=== PATIENT | male | born 1950 | race Caucasian/White ===

== ENCOUNTER 2020-07-18 08:22 | Outpatient (CLI) | payer MEDICARE, SELFPAY ==
[2020-07-18 09:47] LABS: Prothrombin Time 13.4 Seconds (11.1-14.7)
[2020-07-18 09:51] LABS: Alanine Aminotransferase 27 U/L (4-50); Albumin Level 4.5 g/dL (3.5-5.1); Alkaline Phosphatase 60 U/L (38-126); Anion Gap 9 mmol/L (8-16); Aspartate Amino Transferase 35 U/L (17-59); Bilirubin,Total 0.9 mg/dL (0.2-1.3); Blood Urea Nitrogen 16 mg/dL (9-20); Calcium 9.6 mg/dL (8.4-10.2); Carbon Dioxide 30 mmol/L (22-30); Chloride 100 mmol/L (98-107); Estimated Glomerular Filt Rate > 60; Glucose 102 mg/dL (75-110); Potassium 4.3 mmol/L (3.4-5.0); Sodium 139 mmol/L (137-145)
[2020-07-18 09:53] LABS: Hematocrit 41.7 % (42.0-52.0); Hemoglobin 14.1 g/dL (14.0-18.0); Mean Corpuscular HGB Conc 33.8 g/dl (32-36); Mean Corpuscular Hemoglobin 32.9 pg (26-34); Mean Corpuscular Volume 97.2 fl (80-100); Mean Platelet Volume 8.8 fl (7.4-10.4); Platelet Count Result 268 k/mm3 (150-375); Red Blood Count 4.29 M/mm3 (4.6-6.20); Red Cell Distribution Width 13.1 % (11.5-14.5); White Blood Count 6.3 K/mm3 (4.5-10.0)
[2020-07-18 09:58] LABS: Hemoglobin A1C 5.4 % (<5.7)
[2020-07-18 14:30] LABS: Add Urine Microscopic? YES; Appearance Urine Clear (Clear); Bacteria Urine Trace /hpf; Bilirubin Urine Negative (Negative); Blood Urine 1+ (Negative); Color Urine Yellow (Yellow); Glucose Urine UA Negative (Negative); Ketones Urine Negative (Negative); Leukocyte Esterase Ur Negative LEU/UL (NEGATIVE); Mucus Urine Few /lpf; Nitrate Urine Negative (Negative); Protein Urine 1+ mg/dL (Negative); Specific Grav Ur 1.023 (1.001-1.035); Squamous Epithelial Cell Urine Rare /hpf (Few); Urobilinogen Urine Negative mg/dL (<2.0); WBC Urine 0-3 /hpf (0-3)
== END 2020-07-18 08:23 | disposition home or self-care (01) ==
PROVIDERS: PCP Family Medicine Sports Medicine; Visit Provider Family Medicine Sports Medicine
DX: Z01.818 Encounter for other preprocedural examination (principal); R73.01 Impaired fasting glucose; I10 Essential (primary) hypertension; Z86.79 Personal history of other diseases of the circulatory system
CPT/HCPCS: 36415; 80053; 81001; 83036; 84443; 85027; 85610

== ENCOUNTER 2021-06-30 10:18 | Outpatient (CLI) | payer MEDICARE, SELFPAY ==
--- NOTE | ~2021-06-30 | MR_ITS ---
EXAMINATION: MR pelvis wo/w con DATE: 06/30/2021 11:48 INDICATION: Prostate cancer TECHNIQUE: Magnetic resonance imaging (MRI) of the pelvis was performed without and with 14 mL Multih ance intravenous contrast. [place] sequences of the pelvis included axial and coronal T2-weighted S S FSE, axial, sagittal and coronal 2D FIESTA, axial 2D FIESTA FS, axial SSFSE-IR TIMOTHY, axial dual-echo T1-weighted FSPGR, axial and coronal T1 weighted LAVA, 3D axial T2 Cube, axial diffusion-weighted SE with apparent diffusion coefficient (ADC) maps. Postcontrast sequences included a time course axial T1-weighted LAVA and sagittal and coronal T1-weighted LAVA. COMPARISON: CT dated 06/01/2012 FINDINGS: Prostatomegaly measuring 4.9 x 3.5 x 2.9 cm. Bladder and visualized bowels are unremarkable. 6 mm T2 hyperintense cyst at the lower pole of the left kidney. Small bilateral hydroceles. No abnormal fluid collections in the pelvis are visualized lower abdomen. No pathologically enlarged abdominal or pelv ic lymphadenopathy. Normal bone marrow signal throughout. No pathologic marrow replacing process or a bnormally enhancing lesions. IMPRESSION: 1. Prostatomegaly. No evident metastatic disease. Reviewed, dictated and finalized at location A.
[2021-06-30 10:58] LABS: Estimated Glomerular Filt Rate > 60
== END 2021-06-30 10:19 | disposition home or self-care (01) ==
PROVIDERS: PCP Family Medicine Sports Medicine; Visit Provider Radiology Radiation Oncology
DX: C61 Malignant neoplasm of prostate (principal); N40.0 Benign prostatic hyperplasia without lower urinary tract symptoms
CPT/HCPCS: 72197; A9577

== ENCOUNTER 2023-04-21 08:16 | Observation (INO) | payer MEDICARE, SELFPAY ==
[2023-04-21] VITALS (13 sets, daily range): BP systolic 122–167; BP diastolic 67–93; PULSE 44–71; RESP 12–20; TEMP 35.7–37; O2SAT 97–99; BMI 21.2
--- NOTE | ~2023-04-21 | CT_ITS ---
Non-contrast Head CT History: Dizziness COMPARISON: 06/07/2012 Technique: Axial non-contrast imaging of the brain was performed. Dose reduction technique was used on this scan by utilizing automated exposure control and iterative reconstruction technique. The dose -length product (DLP) was 605.33 mGy-cm. Findings: There is no evidence of intracranial hemorrhage, mass lesion, or acute infarct. Brain par enchyma appears normal. The ventricles and subarachnoid spaces are normal in size. The calvarium ap pears normal. The visualized paranasal sinuses and mastoid air cells are clear. Impression: No significant abnormality seen. Reviewed, dictated and finalized at location . Impression: No significant abnormality seen.
--- NOTE | ~2023-04-21 | US_ITS ---
EXAMINATION: US venous doppler [facility] DATE: 04/22/2023 08:59 INDICATION: Lower limb edema. TECHNIQUE: Grayscale ultrasound images without and with compression and Doppler ultrasound images of the bilateral lower extremity veins were obtained. COMPARISON: None. FINDINGS: The visualized portions of right common femoral vein, profunda (deep) femoral vein, femoral vein, pop liteal vein, peroneal veins, posterior tibial veins, and greater saphenous vein outflow are patent. The visualized portions of left common femoral vein, profunda femoral vein, femoral vein, popliteal v ein, peroneal veins, posterior tibial veins, and greater saphenous vein outflow are patent. IMPRESSION: 1. No deep venous thrombosis. Reviewed, dictated and finalized at location A.
--- NOTE | ~2023-04-21 | XR_ITS ---
EXAMINATION: XR chest 1V portable DATE: 04/21/2023 09:07 INDICATION: Chest pain. Dizziness. TECHNIQUE: A single frontal view of the chest was obtained on 2 radiographs. COMPARISON: Chest 2 views 02/08/2017 FINDINGS: There is no pneumonia, pleural effusion, or pneumothorax. The heart size is normal. IMPRESSION: 1. No acute cardiopulmonary disease. Reviewed, dictated and finalized at location A.
--- NOTE | 2023-04-21 08:19 | ECG_ITS ---
Measurements Intervals [place] Rate: 71 P: DE: 0 QRS: 1 QRSD: 118 T: 53 QT: 400 QTc: 437 Interpretive Statements ATRIAL FIBRILLATION MODERATE INTRAVENTRICULAR CONDUCTION DELAY [110+ ms QRS DURATION] ABNORMAL RHYTHM ECG NO PREVIOUS ECG AVAILABLE FOR COMPARISON Electronically Signed On 04-21-2023 9:26:37 CDT by Anoop Yost M.D.
[2023-04-21 08:40] LABS: Basophils Percent Auto 0.6 % (0.2-1.2); Eosinophils Absolute Auto 0.3 K/mm3 (0-0.3); Eosinophils Percent Auto 5.6 % (0-4.4); Hemoglobin 15.1 g/dL (14.0-18.0); Immature Granulocyte Absolute 0.01 K/mm3 (0.00-0.031); Immature Granulocyte Percent A 0.2 % (0-0.5); Lymphocytes Absolute Auto 1.47 K/mm3 (0.9-3.2); Lymphocytes Percent Auto 30.4 % (18.3-44.2); Mean Corpuscular HGB Conc 34.3 g/dl (32-36); Mean Corpuscular Hemoglobin 32.9 pg (26-34); Mean Corpuscular Volume 95.9 fl (80-100); Mean Platelet Volume 8.7 fl (7.4-10.4); Monocytes Absolute Auto 0.5 K/mm3 (0.1-0.6); Monocytes Percent Auto 10.7 % (2.6-8.5); Neutrophils Absolute Auto 2.5 K/mm3 (1.3-6.7); Neutrophils Percent Auto 52.5 % (45.5-73.1); Platelet Count Result 228 k/mm3 (150-375); Red Blood Count 4.59 M/mm3 (4.6-6.20); Red Cell Distribution Width 14.5 % (11.5-14.5); White Blood Count 4.8 K/mm3 (4.5-10.0)
[2023-04-21 08:50] LABS: Alanine Aminotransferase 26 U/L (6-50); Albumin Level 4.3 g/dL (3.5-5.1); Alkaline Phosphatase 47 U/L (38-126); Anion Gap 8 mmol/L (8-16); Aspartate Amino Transferase 33 U/L (17-59); Bilirubin,Total 0.8 mg/dL (0.2-1.3); Blood Urea Nitrogen 16 mg/dL (9-20); Carbon Dioxide 24 mmol/L (22-30); Chloride 102 mmol/L (98-107); Estimated CRCL calculation 76 ml/min; Estimated Glomerular Filt Rate > 60; Glucose 153 mg/dL (65-110); Lipase 38 U/L (23-300); Potassium 3.3 mmol/L (3.4-5.0); Sodium 134 mmol/L (137-145)
[2023-04-21 08:54] LABS: Partial Thromboplastin Time 22.2 SECONDS (22.3-36.8); Prothrombin Time 13.9 Seconds (11.1-14.7)
--- NOTE | 2023-04-21 09:01 | ED.CHESTPAIN ---
HPI - Chest Pain General Chief Complaint: Chest Pain Stated Complaint: heart issues Time Seen by Provider: 04/21/23 08:57 Source: patient and family Limitations: no limitations History of Present Illness HPI narrative: 72 years old white female who came to the emergency room with dizziness and chest pain. 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 Patient was still dizzy, feeling something not right lasted up to 30 minutes. Currently patient laying down in bed telling me that he is still feeling not right. He denies any chest pain or shortness of breath or back pain or headache. History of hypertension, atrial fibrillation on aspirin. He smokes, drinks alcohol and uses marijuana. Strong family history of coronary artery disease Related Data Allergies Allergy/AdvReac Type Severity Reaction Status Date / Time No Known Allergies Allergy Unverified 02/08/17 04:36 Review of Systems Review of Systems: All systems reviewed & are unremarkable except as noted in HPI and below Exam Narrative: General appearance: Well-developed, well-nourished Skin: Normal color Head: Normocephalic, nontraumatic Eyes: Clear conjunctiva ENT: Oropharynx normal, ears normal, nose normal Neck: Supple, nontender Chest and respiratory: Airway patent, no respiratory distress, no accessory muscle use Heart: Irregular irregularity Abdomen: Soft, nontender, no organomegaly, quiet bowel sounds Vascular: Normal peripheral pulses, normal capillary refill. 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, no gross motor deficit Course Reevaluation(s) Reevaluation #1: Currently asymptomatic Date: 04/21/23 Time: 09:38 Vital Signs Vital signs: Vital Signs Pulse Rate 69 04/21/23 08:25 Respiratory Rate 20 04/21/23 08:25 Blood Pressure 162/87 H 04/21/23 08:25 Pulse Oximetry 99 04/21/23 08:25 Oxygen Delivery Room Air 04/21/23 08:25 Pulse Rate 67 04/21/23 09:54 Respiratory Rate 13 04/21/23 09:54 Blood Pressure 147/81 H 04/21/23 09:54 Pulse Oximetry 99 04/21/23 09:54 Oxygen Delivery Room Air 04/21/23 08:25 MDM - Chest Pain MDM Narrative Medical decision making narrative: Patient is 72 years old white female came to the emergency room by private car after having a spell of dizziness while bending over without any nausea or vomiting subsequently developed left upper chest pain radiating to left upper extremity. The above symptoms lasted up to half an hour, currently patient does not feel right, unable to explain it but denying any chest pain or shortness of breath or headache or focal neurodeficit. Differential diagnosis as below Physical examination showed comfortable patient not in any pain or distress lying down comfortably in bed Workup today showed EKG with A-fib with normal ventricular response at 71 bpm, normal chest x-ray, normal CT scan of the head, potassium of 3.3, 40 mill equivalent of potassium given, normal troponin. I was able to watch patient getting out of bed and walk around with steady gait and feeling slightly not right. Patient had history of A-fib and currently on antiplatelet medication. Patient probably need to be on anticoagulant medication. Cardiac score 6, patient have history of hypertension, tobacco dependence, strong family history of coronary artery disease. Differential Diagnosis Differential diagnosis: Likely unstable angina pectoris, atypical chest pain, chest pain and other (Ve
[2023-04-21 09:02] LABS: Troponin I < 0.012 ng/mL (0.000-0.034)
--- NOTE | 2023-04-21 09:34 | PC.NURSE ---
Pt to CT scan via stretcher at this time.
[2023-04-21] MEDS: POTASSIUM CHLORIDE 20 MEQ PACKET (FOR LIQUID) 40 MEQ PO (09:53)
--- NOTE | 2023-04-21 10:38 | ADMGEN ---
This patient, Guy Marc, was admitted to IMU Room 207-01 on 04/21/23 at 1019. Patient/family oriented to hospital policies and general routines including ID bracelet, bed and alarms, visiting hours, pain management, procedures, bathroom and other care routines, personal items, smoking policy, room service/diet, and visiting hours. Information on how to activate the Rapid Response Team has been discussed. Patient/Family are encouraged to report perceived risks to care and to ask questions if they do not understand what they are told or what they should do.
[2023-04-21 12:01] LABS: Troponin I < 0.012 ng/mL (0.000-0.034)
--- NOTE | 2023-04-21 14:14 | PM.IMHP ---
H&P: HPI History of Present Illness Date/Time: 04/21/23 20:30 Chief Complaint: Chest pain. Narrative: This is a very pleasant 72-year-old male with paroxysmal atrial fibrillation atrial fibrillation and hypertension who presented to the emergency department for evaluation of chest pain. The patient provides the following history. 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 He made his way to a nearby chair at which time he noticed that his heart felt as though it was thumping hard in the middle of the chest and he felt that extend into his left arm. The thumping sensation lasted upwards of 10 minutes before resolving without intervention however he still felt a bit lightheaded and dizzy thereafter. He has not had any episodes of chest pain recently and specifically denies exertional chest pain, shortness a breath, nausea, vomiting, and sweats. He denies orthopnea and paroxysmal nocturnal dyspnea. He has noticed some mild swelling when he takes his socks off at night but nothing significant. No vertigo, difficulty speaking or swallowing, facial droop, paresthesias, or focal weakness. On arrival to the emergency department he was found to be in rate controlled atrial fibrillation. EKG was negative for ischemic changes and his initial troponin was also negative. He is being admitted in this setting for close monitoring and Cardiology consultation. At the time my evaluation he is resting comfortably and feels fine but he has not been up and about much. He has not had any recent change in medications. He does drink soda daily and typically drinks a six-pack of beer on the weekend. No known history of thyroid disease or sleep apnea. Review of Systems Review of Systems: Twelve systems were reviewed and are negative except for as per HPI. [facility] Past Medical History Medical History (Updated 04/21/23 @ 23:47 by Michelle Cavanaugh PA-C) Hypertension Nicotine use Paroxysmal atrial fibrillation (2016) Briefly on anticoagulation but now on full-dose aspirin only. Prostate cancer (2019) Status post radiation. Surgical History Surgical History History of right inguinal hernia repair (02/2009) Family History Family History Mother Diabetes mellitus Congestive heart failure Father Heart attack Sibling Malignant neoplasm of prostate Diabetes mellitus Social History Social History (Updated 04/21/23 @ 23:48 by Michelle Cavanaugh PA-C) Social History: Surrogate medical decision maker: Danielle Marc, spouse. Code status: Full code. Years smoked: 10 Smoking status: Current every day smoker Tobacco type: cigarettes Alcohol intake: current Drinks per week: 8 Substance use: current Substance use type: marijuana Lack of Transportation: No Lack of Food: Never True Current Housing: I Have Housing Concerned About Future Housing: No Difficulty Paying Gas/Electric Bills: No Difficulty Paying for Meds: No Currently Unemployed: No Education: High School Diploma/GED Difficulty w/ Childcare or Family Care: No Additional living arrangements comments: Lives with spouse. 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 Spiritual care concerns: No Meds Home Medications and Allergies Home Medications Medication Instructions Recorded Confirmed Type amlodipine 10 mg tablet 10 mg PO DAILY 04/21/23 04/21/23 History aspirin 325 mg tablet 325 mg PO DAILY 04/21/23 04/21/23 History citalopram 10 mg tablet 10 mg PO DAILY 04/21/23 04/21/23 History hydrochlorothiazide 12.5 mg tablet 12.5 mg PO DAILY 04/21/23 04/21/23 History Allergies Allergy/AdvReac Type Severity Reaction Status Date / Time No Known Allergie
--- NOTE | 2023-04-21 14:20 | ECHO_ITS ---
Patient Info Name: Guy Marc Age: 72 years : 1950 Gender: Male Ht: 72 in Wt: 156 lbs BSA: 1.89 m2 HR: 63 bpm BP: 142 / 73 mmHg Heart Rhythm: Atrial Fibrillation Technical Quality: Good Exam Date: 04/21/2023 3:35 PM Exam Location: [facility] Pulmonary Exam Room: [facility] Patient Status: Outpatient Admit Date: 04/21/2023 Staff Ordering Physician: Michelle Cavanaugh PA-C Proj Engineer: Sandra Shaw RDCS Attending Provider: Enrique Cook MD Referring Physician: Mao ELLIOTT; Exam Type: CA echo doppler color flow Study Info Indications - atrial fibrillation chest pain Complete two-dimensional, color flow and Doppler transthoracic echocardiogram is performed. Summary 1. Complete two-dimensional, color flow and Doppler transthoracic echocardiogram is performed. 2. Left ventricular chamber dimension is normal. 3. Left ventricular systolic function is normal, estimated at 65-70%. 4. There is mildly increased left ventricular wall thickness. 5. The left ventricular diastolic function is indeterminate. 6. Left atrial chamber dimension is mildly enlarged. 7. Right atrial chamber dimension is mildly enlarged. 8. There is mild aortic valve regurgitation. 9. There is moderate aortic valve sclerosis. 10. There is mild mitral valve regurgitation. 11. The mitral valve annulus is mildly calcified. 12. The mitral valve has thickened leaflets. 13. There is mild tricuspid valve regurgitation. 14. Mild pulmonary hypertension, estimated pulmonary arterial systolic pressure is 40 mmHg. Left Ventricle Left ventricular chamber dimension is normal. Left ventricular systolic function is normal, estimated at 65-70%. There is mildly increased left ventricular wall thickness. The left ventricular diastolic function is indeterminate. Right Ventricle Right ventricular chamber dimension is normal. Right ventricular systolic function is normal. Left Atria Left atrial chamber dimension is mildly enlarged. Right Atria Right atrial chamber dimension is mildly enlarged. Atrial Septum Intact interatrial septum visualized by color flow imaging. Aortic Valve The aortic valve is trileaflet. There is moderate aortic valve sclerosis. There is no aortic valve stenosis. There is mild aortic valve regurgitation. Pulmonic Valve The pulmonic valve is normal. There is no pulmonic valve stenosis. There is trace pulmonic regurgitation. Mitral Valve The mitral valve has thickened leaflets. There is no mitral valve stenosis. There is mild mitral valve regurgitation. The mitral valve annulus is mildly calcified. Tricuspid Valve The tricuspid valve leaflets are normal. There is no significant tricuspid valve stenosis. There is mild tricuspid valve regurgitation. Mild pulmonary hypertension, estimated pulmonary arterial systolic pressure is 40 mmHg. Pericardium/Pleural The pericardium appears normal. There is no pericardial effusion. Inferior Vena Cava Dilated inferior vena cava with >50% collapse upon inspiration consistent with elevated right atrial pressure, 10 mmHg. Aorta The aortic root size at the sinus of Valsalva is mildly dilated. Left Ventricular Outflow Tract Name Value Normal LVOT 2D LVOT Diameter 2.1 cm LVOT Doppler
--- NOTE | 2023-04-21 15:23 | PM.CNCAR ---
Assessment and Plan Assessment and plan (1) Dizziness: Code(s): R42 - Dizziness and giddiness Status: Acute Assessment and Plan: Head CT negative for acute findings. Recommend to check orthostatic vital signs. Echocardiogram pending. (2) Chest pain: Qualifiers: Chest pain type: unspecified Qualified Code(s): R07.9 - Chest pain, unspecified Code(s): R07.9 - Chest pain, unspecified Status: Acute Assessment and Plan: Episode of chest pain earlier today that lasted for about 10 minutes and has remained chest pain free since then. EKG without ischemic changes. First two troponins are negative. Third troponin pending. Echocardiogram pending. (3) Hypertension: Code(s): I10 - Essential (primary) hypertension Status: Acute Assessment and Plan: Stable. (4) Atrial fibrillation: Code(s): I48.91 - Unspecified atrial fibrillation Status: Acute Assessment and Plan: EKG showing rate controlled atrial fibrillation. Patient states he was diagnosed with atrial fibrillation about 5 years ago and has been on high dose ASA. Unclear if his atrial fibrillation is paroxysmal or persistent/permanent. [id number] of 2 for age and hypertension, therefore, anticoagulation is indicated. Discussed indications for anticoagulation and risks vs benefits of anticoagulant therapy for CVA prophylaxis in the setting of atrial fibrillation. Patient agreeable to start anticoagulation. Will plan to start NOAC prior to discharge and discontinue high dose ASA. Echocardiogram pending. Will also plan for event monitor at the time of discharge to assess the burden of atrial fibrillation and rate control of atrial fibrillation. 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 Will have patient follow up in our office after discharge. History of Present Illness History of Present Illness Consult date/time: 04/21/23 15:23 Requesting physician: Michelle Cavanaugh PA-C Consult reason: chest pain Reason For Visit: Dizziness, chest pain Narrative: Patient is a 72-year-old male with hypertension, atrial fibrillation, tobacco dependence who presented for evaluation of dizziness and chest pain. 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 Tried to sit down but still felt dizzy. Then had substernal chest pain that radiated to left arm. His chest pain lasted for about 10 minutes before resolving. He still felt dizzy afterwards. Patient states he was feeling completely fine beforehand. Last time he had chest pain was in 2008 when his brother . Reports well controlled blood pressures at home - was 117/77mmHg this morning. Patient reports that he was diagnosed with atrial fibrillation 5 years ago. Has been on high dose ASA for it. He does not know if he has been in chronic atrial fibrillation. EKG in the ER today showed rate controlled atrial fibrillation. He denies any palpitations. Patient does smoke 2 packs of cigarettes a week. Mother had congestive heart failure, father had heart attack in his 70s. Troponins negative x 2. Head CT is negative for acute findings. CXR without acute findings. Review of Systems Review of Systems: All systems reviewed & are unremarkable except as noted in HPI and below (HPI) [facility] Past Medical History Medical History Hypertension Surgical History Surgical History History of right inguinal hernia repair (02/2009) Family History Family History Mother Diabetes mellitus Congestive heart failure Father Heart attack Sibling Malignant neoplasm of prostate Diabetes mellitus Social History Social History Social History: Surrogate medical decision maker: Danielle Macr, spouse. Code statu
[2023-04-21 17:22] LABS: Troponin I < 0.012 ng/mL (0.000-0.034)
[2023-04-22] VITALS (10 sets, daily range): BP systolic 125–146; BP diastolic 45–87; PULSE 46–74; RESP 12–16; TEMP 36.1–36.9; O2SAT 97–99
[2023-04-22 04:50] LABS: Hematocrit 43.3 % (42.0-52.0); Hemoglobin 14.7 g/dL (14.0-18.0); Mean Corpuscular HGB Conc 33.9 g/dl (32-36); Mean Corpuscular Hemoglobin 32.7 pg (26-34); Mean Corpuscular Volume 96.4 fl (80-100); Mean Platelet Volume 8.6 fl (7.4-10.4); Platelet Count Result 217 k/mm3 (150-375); Red Blood Count 4.49 M/mm3 (4.6-6.20); Red Cell Distribution Width 14.4 % (11.5-14.5); White Blood Count 4.9 K/mm3 (4.5-10.0)
[2023-04-22 05:00] LABS: Cholesterol 146 mg/dL (0-200); HDL Direct 28 mg/dL; Triglycerides 63 mg/dL (<150)
[2023-04-22 05:02] LABS: Anion Gap 3 mmol/L (8-16); Blood Urea Nitrogen 15 mg/dL (9-20); Calcium 8.9 mg/dL (8.4-10.2); Carbon Dioxide 27 mmol/L (22-30); Chloride 103 mmol/L (98-107); Estimated CRCL calculation 74 ml/min; Estimated Glomerular Filt Rate > 60; Glucose 95 mg/dL (65-110); Magnesium 1.9 mg/dL (1.6-2.3); Potassium 3.7 mmol/L (3.4-5.0); Sodium 133 mmol/L (137-145)
[2023-04-22 05:11] LABS: LDL Cholesterol Direct 103 mg/dL
--- NOTE | 2023-04-22 08:23 | PM.IMPN ---
Progress Note: A&P Assessment and Plan (1) Chest pain: Qualifiers: Chest pain type: unspecified Qualified Code(s): R07.9 - Chest pain, unspecified Code(s): R07.9 - Chest pain, unspecified Status: Acute Assessment and Plan: Etiology on now, likely multifactorial, appreciate cardiology consultation Troponins negative x3, echo pending (2) Atrial fibrillation: Code(s): I48.91 - Unspecified atrial fibrillation Status: Acute Assessment and Plan: Rate controlled, anticoagulation initiated with eliquis 04/22, discontinue aspirin Cardiology is recommending event monitor at discharge (3) Dizziness: Code(s): R42 - Dizziness and giddiness Status: Acute Assessment and Plan: Resolved (4) Hypokalemia: Code(s): E87.6 - Hypokalemia Status: Acute Assessment and Plan: Resolved (5) Hypertension: Code(s): I10 - Essential (primary) hypertension Status: Acute Assessment and Plan: Controlled on current medications Blood pressure reviewed 04/22 (6) Nicotine use: Code(s): Z72.0 - Tobacco use Status: Acute Plan DVT prophylaxis with eliquis GI prophylaxis not indicated Code status full code Subjective Date/time seen: 04/22/23 08:23 Interval history: 72-year-old male with history of AFib presenting with chest pain. No overnight events noted. No chest pain or shortness of breath. No nausea, vomiting or diarrhea. No fevers or chills. Review of Systems Review of Systems: 12 point review of systems was assessed and was negative except as noted in the HPI Exam Narrative: General: No acute distress, alert and oriented per baseline HEENT: Atraumatic, normocephalic, mucous membranes moist CV: Irregularly irregular, S1, S2 Lungs: Clear to auscultation bilaterally, no rales or crackles noted, no wheezes, good air entry Abdomen: Soft, nontender, nondistended Extremities: Normal to inspection Skin: No rashes noted, no lesions or wounds seen Psych: Euthymic, normal affect Objective Data Vital Signs Vital Signs: Vital Signs - 24 hr 04/21/23 08:25 04/21/23 08:25 04/21/23 09:54 Temperature Pulse Rate 69 67 Respiratory Rate 20 13 Blood Pressure 162/87 H 147/81 H Pulse Oximetry 99 98 99 Oxygen Delivery Room Air Room Air 08/09/23 10:38 04/21/23 10:20 04/21/23 10:20 Temperature 98.4 F Pulse Rate 65 66 Respiratory Rate 20 Blood Pressure 167/67 H Pulse Oximetry 99 Oxygen Delivery Room Air 04/21/23 11:58 04/21/23 12:01 04/21/23 12:00 Temperature 96.3 F L Pulse Rate 64 67 Respiratory Rate 18 Blood Pressure 142/73 H Pulse Oximetry 98 Oxygen Delivery Room Air 04/21/23 14:00 04/21/23 16:28 04/21/23 16:28 Temperature 98.6 F Pulse Rate 71 63 69 Respiratory Rate 12 Blood Pressure 159/80 H 157/93 H Pulse Oximetry 97 99 Oxygen Delivery 04/21/23 16:29 04/21/23 16:29 04/21/23 16:00 Temperature 98.6 F Pulse Rate 71 63 71 Respiratory Rate 12 Blood Pressure 167/88 H 159/80 H Pulse Oximetry 99 97 Oxygen Delivery 04/21/23 16:00 04/21/23 20:00 04/21/23 20:00 Temperature 97.0 F L Pulse Rate 55 L Respiratory Rate 16 Blood Pressure 122/76 122/76 Pulse Oximetry 98 Oxygen Delivery Room Air 04/21/23 20:31 04/21/23 20:31 04/21/23 20:00 Temperature Pulse Rate 59 L Respiratory Rate Blood Pressure 134/78 134/86 Pulse Oximetry 98 Oxygen Delivery Room Air 04/21/23 20:00 04/21/23 22:00 04/22/23 00:00 Temperature Pulse Rate 59 L 44 L Respiratory Rate Blood Pressure Pulse Oximetry 98 Oxygen Delivery Room Air 04/22/23 00:12 04/22/23 00:00 04/22/23 02:00 Temperature 96.9 F L Pulse Rate 60 48 L 46 L Respiratory Rate 16 Blood Pressure 146/76 H Pulse Oximetry 98 Oxygen Delivery 04/22/23 04:00 04/22/23 04:00 04/22/23 04:00 Temperature 97
[2023-04-22] MEDS: amLODIPine BESYLATE 5 MG TABLET 10 MG PO (08:59)
[2023-04-22] MEDS: ENOXAPARIN 40 MG/0.4 ML SYRINGE SUB-Q (08:59)
[2023-04-22] MEDS: CITALOPRAM HYDROBROMIDE 10 MG TABLET PO (08:59)
[2023-04-22] MEDS: ASPIRIN 325 MG TABLET PO (08:59)
[2023-04-22] MEDS: hydroCHLOROthiazide 12.5 MG CAPSULE PO (08:59)
--- NOTE | 2023-04-22 10:13 | PM.PNCARD ---
Progress Note: A&P Assessment and Plan (1) Dizziness: Code(s): R42 - Dizziness and giddiness Status: Acute Assessment and Plan: Resolved. (2) Chest pain: Qualifiers: Chest pain type: unspecified Qualified Code(s): R07.9 - Chest pain, unspecified Code(s): R07.9 - Chest pain, unspecified Status: Acute Assessment and Plan: Episode of chest pain yesterday that lasted for about 10 minutes and has remained chest pain free since then. EKG without ischemic changes. Negative serial troponins. Echocardiogram showed normal LVSF, no WMA, no significant valve pathology. (3) Hypertension: Code(s): I10 - Essential (primary) hypertension Status: Acute Assessment and Plan: Stable. (4) Atrial fibrillation: Code(s): I48.91 - Unspecified atrial fibrillation Status: Acute Assessment and Plan: EKG showing rate controlled atrial fibrillation. Patient states he was diagnosed with atrial fibrillation about 5 years ago and has been on high dose ASA. Unclear if his atrial fibrillation is paroxysmal or persistent/permanent. [id number] of 2 for age and hypertension, therefore, anticoagulation is indicated. He has been started on Eliquis 5mg b.i.d. ASA has been discontinued. OK for discharge today from a cardiac standpoint. 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 Will have patient follow up in our office after discharge. Subjective Date/time seen: 04/22/23 10:13 Interval history: Cardiology follow up for atrial fibrillation Feeling great this morning. Eager to go home. He denies any chest pain, shortness of breath, palpitations. Had some mild swelling yesterday that has resolved. Review of Systems Review of Systems: All systems reviewed & are unremarkable except as noted in HPI and below (HPI) Exam Const: General: comfortable and no acute distress HENMT: Mouth: Yes moist mucous membranes Eyes: General: appearance normal, both eyes and all related structures Sclera: sclerae normal Neck: Neck: supple Chest: Other: No reproducible chest wall pain Resp: Effort & Inspection: normal respiratory effort Auscultation: clear to auscultation bilaterally Cardio: Rate: regular rate Rhythm: regular rhythm Heart sounds: no murmurs Skin: General skin exam: normal color Neuro: Speech: normal speech Psych: Mental Status: mental status grossly normal Affect: normal affect Objective Data Vital Signs Vital Signs: Vital Signs - 24 hr 04/21/23 10:38 04/21/23 10:20 04/21/23 10:20 Temperature 36.9 C Pulse Rate 65 66 Respiratory Rate 20 Blood Pressure 167/67 H Pulse Oximetry 99 Oxygen Delivery Room Air 04/21/23 11:58 04/21/23 12:01 04/21/23 12:00 Temperature 35.7 C L Pulse Rate 64 67 Respiratory Rate 18 Blood Pressure 142/73 H Pulse Oximetry 98 Oxygen Delivery Room Air 04/21/23 14:00 04/21/23 16:28 04/21/23 16:28 Temperature 37.0 C Pulse Rate 71 63 69 Respiratory Rate 12 Blood Pressure 159/80 H 157/93 H Pulse Oximetry 97 99 Oxygen Delivery 04/21/23 16:29 04/21/23 16:29 04/21/23 16:00 Temperature 37.0 C Pulse Rate 71 63 71 Respiratory Rate 12 Blood Pressure 167/88 H 159/80 H Pulse Oximetry 99 97 Oxygen Delivery 04/21/23 16:00 04/21/23 20:00 04/21/23 20:00 Temperature 36.1 C L Pulse Rate 55 L Respiratory Rate 16 Blood Pressure 122/76 122/76 Pulse Oximetry 98 Oxygen Delivery Room Air 04/21/23 20:31 04/21/23 20:31 04/21/23 20:00 Temperature Pulse Rate 59 L Respiratory Rate Blood Pressure 134/78 134/86 Pulse Oximetry 98 Oxygen Delivery Room Air 04/21/23 20:00 04/21/23 22:00 04/22/23 00:00 Temperature Pulse Rate 59 L 44 L Respiratory Rate Blood Pressure Pulse Oximetry 98 Oxygen Delivery Room Air 04/22/23 00:12 04/22/23 00:00 04/22/23 02:00 Temperature 36.1 C L Pulse Rate 60 48 L 46 L
--- NOTE | 2023-04-22 12:48 | PM.DS ---
DS: Admitting Diagnosis Discharge Date 04/22/23 Admitting Diagnosis chest pain DS: Discharge Diagnosis Discharge Diagnosis (1) Chest pain: Qualifiers: Chest pain type: unspecified Qualified Code(s): R07.9 - Chest pain, unspecified Code(s): R07.9 - Chest pain, unspecified Status: Acute Assessment and Plan: Etiology unknown, likely multifactorial, appreciate cardiology consultation Troponins negative x3, echo pending (2) Atrial fibrillation: Code(s): I48.91 - Unspecified atrial fibrillation Status: Acute Assessment and Plan: Rate controlled, anticoagulation initiated with eliquis 04/22, discontinue aspirin Cardiology is recommending event monitor at discharge (3) Dizziness: Code(s): R42 - Dizziness and giddiness Status: Acute Assessment and Plan: Resolved (4) Hypokalemia: Code(s): E87.6 - Hypokalemia Status: Acute Assessment and Plan: Resolved (5) Hypertension: Code(s): I10 - Essential (primary) hypertension Status: Acute Assessment and Plan: Controlled on current medications Blood pressure reviewed 04/22 (6) Nicotine use: Code(s): Z72.0 - Tobacco use Status: Acute Plan DVT prophylaxis with eliquis GI prophylaxis not indicated Code status full code DS: Summary Hospital Course Hospital Course: 72-year-old male with hypertension, atrial fibrillation, tobacco dependence who presented for evaluation of dizziness and chest pain.? EKG showing rate controlled atrial fibrillation. Patient states he was diagnosed with atrial fibrillation about 5 years ago and has been on high dose ASA. Unclear if his atrial fibrillation is paroxysmal or persistent/permanent. [id number] of 2 for age and hypertension, therefore, anticoagulation is indicated. Discussed indications for anticoagulation and risks vs benefits of anticoagulant therapy for CVA prophylaxis in the setting of atrial fibrillation. Patient agreeable to start anticoagulation. Will plan to start NOAC prior to discharge and discontinue high dose ASA. Echo results reviewed with patient. Will also plan for event monitor at the time of discharge to assess the burden of atrial fibrillation and rate control of atrial fibrillation. Please see above and med rec for details. Time Spent with Patient Time attestation: Total time spent providing and/or coordinating discharge services: Exam Narrative: General: No acute distress, alert and oriented per baseline HEENT: Atraumatic, normocephalic, mucous membranes moist CV: Irregularly irregular, S1, S2 Lungs: Clear to auscultation bilaterally, no rales or crackles noted, no wheezes, good air entry Abdomen: Soft, nontender, nondistended Extremities: Normal to inspection Skin: No rashes noted, no lesions or wounds seen Psych: Euthymic, normal affect DS: Data Data Completed and Pending Labs on day of discharge: Labs from last 24 hours 04/22/23 04/21/23 04:27 16:53 WBC 4.9 RBC 4.49 L Hgb 14.7 Hct 43.3 MCV 96.4 MCH 32.7 MCHC 33.9 RDW 14.4 Plt Count 217 MPV 8.6 Sodium 133 L Potassium 3.7 Chloride 103 Carbon Dioxide 27 Anion Gap 3 L BUN 15 Creatinine 0.80 Estim Creat Clear Calc 74 Estimated GFR > 60 Glucose 95 Calcium 8.9 Magnesium 1.9 Troponin I < 0.012 Triglycerides 63 Cholesterol 146 LDL Cholesterol Direct 103 HDL Direct 28 TSH (Reflex) 2.690 Discharge Plan Discharge Attending physician on discharge: Vicky Blandon Consulting providers: Anoop Yost Discharging Clinician: Vicky Blandon Patient Disposition: Home, Self-Care Activity: as tolerated Diet: as tolerated Discharge Instructions: Please discuss picking up event recorder with cardiology on your way out. Patient Instructions: Antibiotic Form, How to Stop Smoking (DC), Cigarette Smoking and Yo
== END 2023-04-22 14:00 | disposition home or self-care (01) ==
LOC: ANHED 08:57 → ANHIMU 10:10
PROVIDERS: Physician Assistant; Admitting Provider Chiropractor; Emergency Provider Emergency Medicine; PCP Family Medicine Sports Medicine; Visit Provider Student in an Organized Health Care Education/Training Program
DX: R07.9 Chest pain, unspecified (principal); R42 Dizziness and giddiness; E87.6 Hypokalemia; I10 Essential (primary) hypertension; I48.0 Paroxysmal atrial fibrillation; F12.90 Cannabis use, unspecified, uncomplicated; F17.210 Nicotine dependence, cigarettes, uncomplicated; Z79.82 Long term (current) use of aspirin; Z82.49 Family history of ischemic heart disease and other diseases of the circulatory system; Z85.46 Personal history of malignant neoplasm of prostate; Z92.3 Personal history of irradiation
CPT/HCPCS: 36415; 70450; 71045; 80048; 80053; 80061; 83690; 83735; 84443; 84484; 85025; 85027; 85610; 85730; 93005; 93306; 93970; 96372; 99285; A9270; G0378; J1650

== ENCOUNTER 2023-06-07 15:56 | Outpatient (CLI) | payer MEDICARE, SELFPAY ==
--- NOTE | ~2023-06-07 | US_ITS ---
EXAMINATION: US carotid duplex BI DATE: 06/07/2023 16:32 INDICATION: Right carotid bruit TECHNIQUE: Grayscale, color Doppler, and pulsed Doppler images of the cervical carotid arteries were obtained. The degree of vessel stenosis is placed in one of the following categories: normal, <50%, 5 0-69%, >=70% but less than near-occlusion, near-occlusion, or total occlusion. Note that percent sten osis relative to normal distal artery lumen diameter is indirectly measured from velocity measurement s as described by Riki, et al. Radiology 2003; 229:340-346. Notes: Normal: Peak systolic velocity <125 centimeters/sec and no plaque <50%. Peak systolic velocity <125 ( EDV <40; ICA/CCA PSV ratio <2.0; used these factors only a tandem lesions or low cardiac output or co ntralateral disease) 50-69 %: PSV 125-230 (EDV 40-100; ratio 2-4) >= 70% but less than near occlusion: PSV greater than 230 (EDV > 100; ratio> 4.0) Near Occlusion: PSV that is variable; markedly narrowed lumen Occlusion: Absent flow on color/spectral Doppler and no lumen on arellano scale. COMPARISON: None. FINDINGS: RIGHT: The right common carotid artery (CCA) peak systolic velocity (PSV) is 101 cm/s. The right internal ca rotid artery (ICA) PSV is 54 cm/s. The right ICA end-diastolic velocity (EDV) is 14 cm/s. The right I CA/CCA PSV ratio is 0.5. The external carotid artery (ECA) PSV is 66 cm/s. There is antegrade flow in the right vertebral artery. LEFT: The left CCA PSV is 101 cm/s. The left ICA PSV is 49 cm/s. The left ICA EDV is 8 cm/s. The left ICA/C CA PSV ratio is 0.5. The ECA PSV is 88 cm/s. There is antegrade flow in the left vertebral artery. IMPRESSION: 1. Less than 50% stenosis in the right internal carotid artery by sonographic criteria. 2. Less than 50% stenosis in the left internal carotid artery by sonographic criteria. Reviewed, dictated and finalized at location B. IMPRESSION: 1. Less than 50% stenosis in the right internal carotid artery by sonographic c panfilo. 2. Less than 50% stenosis in the left internal carotid artery by sonographic cr cosmo.
== END 2023-06-07 15:57 | disposition home or self-care (01) ==
PROVIDERS: PCP Family Medicine Sports Medicine; Visit Provider Internal Medicine
DX: I65.23 Occlusion and stenosis of bilateral carotid arteries (principal)
CPT/HCPCS: 93880